=== PATIENT | male | born 1930 | race Caucasian/White ===

== ENCOUNTER 2017-10-17 22:31 | Inpatient (IN) | payer MEDICARE, OTHER ==
[~2017-10-17] VITALS: Ht 182.9 cm; Wt 68.0 kg
[~2017-10-17 22:31] MED LIST: ACETAMINOPHEN325 M1 OR; ACID CONTROL20 MG OR; ADVAIR 250-501 EACH; ADVAIR HFA 230M12 GM INH; ADVAIR HFA115 MCG/21 INH; ASPIR-TRIN325 MG PO; ASPIRIN325; ASPIRIN325 PO; AUGMENTIN 875-1 EACH; AUGMENTIN 875875 MG PO; CARDIZEM CD240 MG PO; CARDIZEM CD360 MG OR; CEFTIN500 MG PO; CLOTRIMAZOLE100 MG PO; FLECAINIDE ACET50 M2 PO; LEVOTHYROXIN0.025 MG PO; MAGOX 400400 MG PO; MUCINEX TA600 MG/TA1 PO; MUCUS RELIEF400 MG PO; NYSTATIN 1100000 U/M OR; PACERONE 200 M200 M1 PO; PREDNISONE 10 M10 M1 OR; PREDNISONE 10 M10 MG PO; PREDNISONE 20 M20 M1; PREDNISONE 20 M20 M1 PO; PREDNISONE50 MG PO; PROAIR HFA8.5 GM IH; PROPAFENONE 22225 MG PO; PROVENTIL INH; SORINE 80 MG TA80 M1 PO; SORINE 80 MG TA80 MG PO; SPIRIVA; SPIRIVA INH; THEO-24400 MG; THEO-24400 MG PO; THEOPHYLLINE S200 M1; ZPAK PO
[2017-10-17 22:33] VITALS: BP 117/65
[2017-10-17 23:00] LABS: BE 4.9 mmol/L (-2 to +3); PCO2 46.1 mmHg (35.0-45.0); pH 7.431 (7.340-7.450)
[2017-10-17 23:02] LABS: PO2 127.8 mmHg (75.0-100.0)
[2017-10-17 23:09] LABS: URINE BILIRUBIN NEGATIVE (Negative); URINE BLOOD 2+ (Negative); URINE CLARITY CLEAR; URINE COLOR YELLOW; URINE GLUCOSE-RANDOM NEGATIVE (Negative); URINE KETONES NEGATIVE (Negative); URINE LEUKOCYTES-REFLEX TRACE (Negative); URINE NITRITE-REFLEX NEGATIVE (Negative); URINE PROTEIN TRACE (Negative); URINE SPECIFIC GRAVITY 1.015 (1.005-1.030)
--- NOTE | 2017-10-17 23:13 | NUR ---
FAMILY AT BEDSIDE
[2017-10-17 23:14] LABS: ABSOLUTE BASOPHILS 0.1 thou/uL (0.0-0.2); ABSOLUTE EOSINOPHILS 0.1 thou/uL (0.0-0.7); ABSOLUTE MONOCYTES 0.8 thou/uL (0.0-1.2); ABSOLUTE NEUTROPHILS 8.1 thou/uL (1.6-8.1); BASOPHILS 0.6 %; EOSINOPHILS 0.5 %; HEMATOCRIT 37.4 % (42.0-52.0); MCHC 32.2 g/dL (28.0-37.0); MCV 80.9 fL (80.0-100.0); MONOCYTES 7.7 %; MPV 8.9 fl. (7.2-11.1); NUCLEATED RBCS 0 /100WBC; PLATELET COUNT* 220 thou/uL (150-400); POLYS 81.2 %; RBC 4.62 mil/uL (4.50-6.00); RDW-CV 16.3 % (10.5-14.5)
[2017-10-17 23:19] LABS: BACTERIA-REFLEX >30 Many /HPF (None Seen); FINE GRANULAR CASTS 0-3 Few /LPF (None Seen); HYALINE CASTS 0-3 Few /LPF (None Seen); MUCUS >6 Heavy strn/LPF (None Seen); RBC CASTS 0-3 /LPF; SQUAMOUS 0-3 Few /LPF (0-3); URINE RBC >20 Many /HPF (0-2); URINE WBC-REFLEX 6-15 Few /HPF (0-5)
[2017-10-17 23:20] LABS: CRYSTALS None Seen /LPF (None Seen)
[2017-10-17] MEDS ORDERED: DIGOXIN250 MCG PO (23:20)
[2017-10-17 23:25] LABS: ANION GAP 5 mmol/L (7-16); BUN 12 mg/dL (7-18); CALCIUM 8.8 mg/dL (8.5-10.1); CHLORIDE 100 mmol/L (98-107); CO2 33 mmol/L (21-32); CREATININE 0.8 mg/dL (0.6-1.3); GLUCOSE 125 mg/dL (70-99); SODIUM 138 mmol/L (136-145)
[2017-10-17] MEDS ORDERED: PRESERVISION L1 EACH PO (23:25)
[2017-10-17 23:32] LABS: ALBUMIN 2.4 g/dL (3.4-5.0); ALKALINE PHOSPHATASE 60 U/L (46-116); MAGNESIUM 1.8 mg/dL (1.8-2.4); SGOT 10 U/L (15-37); TOTAL BILIRUBIN 0.4 mg/dL (<0.1-1.0); TOTAL PROTEIN 6.3 g/dL (6.4-8.2); TROPONIN-I LEVEL <0.06 ng/mL (<0.06)
[2017-10-18] VITALS (9 sets, daily range): BP systolic 92–104; BP diastolic 50–59
--- NOTE | 2017-10-18 05:03 | NUR ---
PATIENT ARRIVED VIA CART FROM ED AROUND 0110. PT A/OX2, ONLY STATES "I'M COLD" WHEN SPOKEN TOO. PT DID DENY PAIN. TELE MONITOR TRACING AFIB/BBB AND SR. BP STABLE. IVF INFUSING ORDERED. PT PULLED IV OUT THIS AM AND WAS TUGGING AT BAKER- MITTS PLACED ON HANDS FOR SAFETY. BAKER TO D/D WITH EMERITA/RED URINE. ON 2L NC. INCONT BMX3 THIS SHIFT. REPOSITIONED Q2H. FALL PRECAUTIONS IN PLACE, BEDALARM IN PLACE, WILL CONTINUE WITH PLAN OF CARE.
--- NOTE | 2017-10-18 07:15 | NUR ---
CHANGE OF SHIFT, BEDSIDE REPORT GIVEN ASSUMED PATIENT CARE PATIENT SEEN AT BEDSIDE ASLEEP, BED ALARM SET
[2017-10-18 07:18] LABS: SGPT < 6 U/L (30-65)
--- NOTE | 2017-10-18 10:06 | EKG ---
[place] [address] ELECTROCARDIOGRAM REPORT Name: ROHITHJAKE V Room: [address] ADM IN M.R.#: [id number] Admission: 10/18/17 Attend Phys: Omaira Cai Discharge: Date of : [birth year] Report #: [id number] THIS REPORT FOR: //name// [facility] ED Test Date: 2017-10-17 Test Time: 22:50:26 Pat Name: JAKE NEWBERRY Department: Room: [facility] Gender: M Barrel Assembler: GONZALES : 1930 Requested By: Darcy Roy Order Number: [id number] MD: Bill Isaac Measurements Intervals [place] Rate: 81 P: 82 MI: 205 QRS: -35 QRSD: 127 T: 30 QT: 388 QTc: 451 Interpretive Statements Sinus rhythm low voltage Right bundle branch block Baseline wander in lead(s) I,III,aVL,aVF Compared to ECG 06/10/2015 21:42:39 No significant changes Electronically Signed On 10-18-2017 10:06:34 CONDENSER TESTER by Bill Isaac [email or web address] <ELECTRONICALLY SIGNED> By: Bill Isaac MD, [facility] 10/18/17 1006 2250 [id number] Bill Isaac MD, [facility] /EPI
--- NOTE | 2017-10-18 12:01 | NUR ---
WOUND CARE NOTE: CONSULT RECEIVED FOR SACRAL FISSURE. PATIENT PRESENTS WITH PARTIAL THICKNESS SKIN BREAKDOWN TO SACRAL/JAIMIE-ANAL AREA. BELIEVE DUE TO INCONTINENCE ASSOCIATED DERMATITIS. PATIENT DID HAVE INCONTINENT EPISODE, ASSSISTED HEALTH AND SAFETY SPECIALIST WITH CLEANSING AND NEW CHUX APPLIED. AREA MEASURES 9.5X0.5X0.1. APPLIED Z-GUARD BARRIER OINTMENT. EDUCATED PATIENT ON KEEPING OFF AREA, BUT WILL NEED REINFORCEMENT HE IS CONFUSED. PATIENT WAS PLACED ON THE LEFT SIDE USING PILLOWS. RECOMMEND TURN Q2 HOURS-KEEP OF WOUNDS ENCOURAGE GOOD NUTRITION AND HYDRATION HEELS OFFLOADED Z-GUARD BID AND PRN INCONTINENCE
--- NOTE | 2017-10-18 14:49 | NUR ---
CM left VM for Pt's dtr to assess living situation. Awaiting call back.
--- NOTE | 2017-10-18 18:49 | NUR ---
PATIENT REMAINS A AND O X [address], CONFUSED ABOUT SITUATION, TIME IRRITABLE AND NONCOPERATIVE AND CURSING MOST OF THE DAY SR LUNGS DIM O2 2L NC O2 SAT MID 90S POOR APPETITE, REFUSES ORAL INTAKE MULTIPLE LARGE LOOSE BMS TODAY BAKER TO DD YELLOW WITH SEDIMENT UO BR TURN Q 2HR SKIN DRY AND FRAGILE AND MULTIPLE BRUISES SACRAL CRACK WITH OPEN, RED AREA WOUND CONS SEEN AND BARRIER CREAM APPLIED AFTER CLEANSING AREA IV 20 GA R H IVF SLD CTA COMPLETED TODAY SPEECH EVAL COMPLETED TODAY CALL LIGHT IN REACH AND INSTRUCTION GIVEN BUT NOT ALWAYS FOLLOWED BED ALARM SET
[2017-10-19 03:52] VITALS: BP 100/49
--- NOTE | 2017-10-19 05:12 | NUR ---
ASSUMED CARE AROUND 1930. PT CONFUSED, ORIENTED TO SELF ONLY. PT MORE ALERT/AWAKE NIGHT WENT OUT, YELLING OUT. PT THINKS HE IS AT HOME AND ASKS FOR HIS DAUGHTER YENNIFER EVERY TIME STAFF ENTERS ROOM. PT REORIENTED FREQUENTLY. PT STATING HE HASN'T EATEN OR DRANK ANYTHING "IN 18 HOURS". PATIENT INSISTED ON DRINKING WATER WHILE LYING DOWN- NO CHOKING NOTED. OFFERED PT PUDDING AND APPLESAUCE THIS SHIFT MULTIPLE TIMES BUT HE WOULD COME UP WITH AN EXCUSE NOT TO EAT IT. TELE MONITOR TRACING SR/BBB AND AFIB. VSS, TMAX 100.2F ORAL. ON 3L NC. BAKER TO D/D. INCONT BM. REPOSITIONED DURING NIGHT. IV SALINE LOCKED. PT DENIED PAIN. CALL LIGHT IN REACH, BEDALARM ON, WILL CONTINUE WITH PLAN OF CARE.
--- NOTE | 2017-10-19 07:10 | NUR ---
CHANGE OF SHIFT, BEDSIDE REPORT GIVEN PATIENT SEEN AT BEDSIDE, RESTING IN BED BED ALARM SET ASSUMED PATIENT CARE
[2017-10-19 08:00] VITALS: BP 106/48
--- NOTE | 2017-10-19 14:39 | NUR ---
PT'S MEDICAL CHART REVIEWED AND STATUS DISCUSSED W/ NSG. PER NSG AND PT'S SON WHO WAS PRESENT IN ROOM, PT HAS BEEN BED BOUND X 1 YEAR. PT IS NON AMBULATORY AND ALL CARE RECEIVED AT BED LEVEL. DUE TO PT AT BASELINE LEVEL OF FUNCTIONING NO FURTHER ACUTE PT SERVICES ARE INDICATED.
--- NOTE | 2017-10-19 14:49 | NUR ---
CM SPOKE TO THE PATIENT'S DTR TO DISCUSS THE PATIENT'S HOME SITUATION, DISCHARGE PLANNING, AND TO INFORM OF THE ROLE OF CM. PATIENT RESIDES AT HOME AND DTR LIVES WITH HIM. PATIENT'S DTR DOES ALL COOKING AND CLEANING IN THE HOME. PRIOR TO ADMISSION PATIENT UNABLE TO BATHE AND DRESS HIMSELF INDEPENDENTLY. PATIENT HAS A C.N.A THAT ASSIST HIM AT HOME FROM 11AM-2PM SATURDAY THRU SATURDAY. PATIENT USES A WHEELCHAIR FOR MOBILITY AND OCCATIONALLY USES A WALKER. PATIENT HAS NO HX OF SNF, AND PLANS TO HAVE THE PATIENT RETURN HOME AT D/C. CM WILL REMAIN AVAILABLE TO ASSIST AND FOLLOW NEEDED.
--- NOTE | 2017-10-19 18:30 | NUR ---
PATIENT REMAINS A AND O X 1-[address], CONFUSED AND IMPULSIVE IRRITABLE AND NONCOOPERATIVE MOST TIMES AFIB/SR IN AND OUT OF AFIB LUNGS DIM/COARSE/WHEEZES O2 3L NC O2 SATS MID 90S POOR APPETITE DIET AMMENDED SOFT/PUREED DUE TO POOR DENTATION ENCOURAGE AND ASSIST FEED LAST BM TODAY X 2 BAKER TO DD BLD TINGED URINE BR TURN Q 2HR RECTAL JAIMIE ANAL WOUND REDDNESS ALONG CRACK CLEANSED AND ZINC BARRIER APPLIED PRN IV 22 GA R WR SL NO C/O PAIN CALL LIGHT IN REACH AND INSTRUCTION GIVEN AND FOLLOWED AT TIMES BED ALARM SET NEW ORDERS TODAY CONS FOR PULM AND HOSPICE
[2017-10-19 19:47] VITALS: BP 98/45
[2017-10-20] VITALS (7 sets, daily range): BP systolic 82–102; BP diastolic 40–57
[2017-10-20 05:12] LABS: HEMATOCRIT 29.8 % (42.0-52.0); MCH 25.9 pg (26.0-34.0); MCHC 32.2 g/dL (28.0-37.0); MCV 80.6 fL (80.0-100.0); MPV 8.6 fl. (7.2-11.1); RBC 3.69 mil/uL (4.50-6.00); RDW-CV 16.2 % (10.5-14.5)
[2017-10-20 05:17] LABS: HEMOGLOBIN 9.6 gm/dL (14.0-18.0)
[2017-10-20 06:15] LABS: ALBUMIN 1.8 g/dL (3.4-5.0); ALKALINE PHOSPHATASE 47 U/L (46-116); ANION GAP 10 mmol/L (7-16); BUN 11 mg/dL (7-18); CALCIUM 7.6 mg/dL (8.5-10.1); CHLORIDE 108 mmol/L (98-107); CO2 26 mmol/L (21-32); CREATININE 0.8 mg/dL (0.6-1.3); GLUCOSE 96 mg/dL (70-99); MAGNESIUM 1.6 mg/dL (1.8-2.4); POTASSIUM 3.3 mmol/L (3.5-5.1); SGOT 11 U/L (15-37); SGPT < 6 U/L (30-65); SODIUM 144 mmol/L (136-145); TOTAL BILIRUBIN 0.3 mg/dL (<0.1-1.0); TOTAL PROTEIN 4.6 g/dL (6.4-8.2)
--- NOTE | 2017-10-20 06:53 | NUR ---
ASSUMED CARE AROUND 1930. PT CONFUSED, ORIENTED TO SELF, MORE PLEASANT TONIGHT AND RESTED MORE TONIGHT. PT DID EAT TWO PUDDINGS. TELE MONITOR TRACING AFIB/BBB AND SR. VSS, AFEBRILE. ON 3L NC-LEAVING IT ON THIS SHIFT BUT TALKING ABOUT HOW THE CORD IS SPLIT AND HE NEEDED IT FIXED. PT FREQUENTLY REORIENTED. SPOKE TO DAUGHTER YENNIFER LAST NIGHT FOR AN UPDATE. IV SALINE LOCKED. BAKER TO D/D WITH DARK YELLOW URINE. REPOSITIONED DURING THE NIGHT. DENIED ANY PAIN. SEE CHARTING. CALL LIGHT IN REACH, WILL CONTINUE WITH PLAN OF CARE.
--- NOTE | 2017-10-20 07:15 | NUR ---
CHANGE OF SHIFT, BEDSIDE REPORT GIVEN PATIENT SEEN AT BEDSIDE, ASLEEP BED ALARM ON ASSUMED PATIENT CARE
[2017-10-20 12:47] LABS: CALCIUM 7.9 mg/dL (8.5-10.1); CREATININE 0.8 mg/dL (0.6-1.3); MAGNESIUM 1.5 mg/dL (1.8-2.4); POTASSIUM 3.1 mmol/L (3.5-5.1)
--- NOTE | 2017-10-20 19:12 | NUR ---
PATIENT A AND O 1-2, CONUSED LESS OFTEN TODAY AFIB/SR LUNGS COARSE/DIM O2 3L NC O2 SAT MID 90S POOR APPETITE ALTERED DIET SOFT/PUREED DUE TO DENTATION LAST BM TODAY BAKER TO DD DYELLOW URINE OUTPUT BR TURN Q 2HR REF SCDS NO C/O PAIN WOUND SACRAL TO ANUS ZINC BARRIER CREAM APPLIED AFTER CLEANSING WHEN SOILED IV R FA 20 GA SL CALL LIGHT IN REACH AND INSTRUCTION GIVEN AND FOLLOWED AT TIMES BED ALARM SET ABN LABS K+ 3.3 AND MAG 1.6 REPLACED PER [facility] [employer] AND TO CHECK ON PM CONS PULM AND HOSPICE SHIFT
--- NOTE | 2017-10-21 03:15 | NUR ---
ASSUMED CARE OF PT AT 1900. PT IS CONFUSED. VSS. CONNOR. NO COMPLAINTS OF PAIN. PT HAS A BAKER IN PLACE. PT IS IN SINUS RYTHM ON THE TELEMETRY. PT IS RESTING COMFORTABLY IN BED. RESPIRATIONS ARE EVEN AND NONLABORED. WILL CONTINUE TO MONITOR PT.
[2017-10-21 04:00] VITALS: BP 96/45
[2017-10-21 08:00] VITALS: BP 102/50
[2017-10-21 08:05] LABS: MAGNESIUM 1.9 mg/dL (1.8-2.4); POTASSIUM 4.3 mmol/L (3.5-5.1)
--- NOTE | 2017-10-21 09:44 | NUR ---
ASSUMED CARE OF PT THIS AM AROUND 0715- MATERIAL INSPECTOR IN PLACE ORDERED, TRACING SR- UPON ASSESSMENT PT NOTED TO BE RESTING IN BED, EYES CLOSED- A&O X3-4 WITH FORGETFULLNESS, NOTED TO BE FUSSY AND MODDY AT TIMES- CONTINENT OF BOWEL, BAKER IN PLACE D/D CLEAR EMERITA URINE- BED REST WITH QN [address], BARRIOR CREAM TO COCCYX INDICATED- LCTA IN BASES, DIMINISHED IN UPPER LOBES- RESP EVEN AND UN-LABORED- VSS, O 2 SAT 93% ON 3L VIA NC- ABDOMEN SOFT/ROUND/NON-TENDER, BS X 4- LAST BM REPORTED 10/20/17- IV NOTED TO RIGHT FA INTACT, IV ABT GIVEN THIS AM PRESCIBED THIS AM- POOR PO INTAKE NOTED THIS AM WITH BREAKFAST- PT DENIES ANY C/O PAIN/DISCOMFORT AT THIS TIME- CALL LIGHT AND PERSOANL BELONGINGS WITH IN REACH- HOURLY ROUNDS IN PLACE R/T SAFETY/NEEDS- ALL NEEDS MET AT THIS TIME-WCTM
--- NOTE | 2017-10-21 10:58 | NUR ---
Following through dc. Spoke with Pt's dtr via phone regarding hospice consult. Dtr in agreement with speaking with hospice. Dtr is at jury duty today, so unable to speak with hospice. Dtr stated that Pt is current with [facility] in home care, so would like to use [facility]. CM to contact dtr in the morning to arrange meeting with hospice, assuming she does not get called for jury duty. Following.
[2017-10-21 11:51] VITALS: BP 93/50
--- NOTE | 2017-10-21 11:54 | CON ---
[address] [address] CONSULTATION Name: JAKE NEWBERRY V Room: [address] IN M.R.#: [id number] Admission: 10/18/17 Attend Phys: Omaira Cai Discharge: Date of : [birth year] Report #: [id number] THIS REPORT FOR: //name// CC: Joanne Dominique REQUESTING PHYSICIAN: Ashwin Velasquez MD REASON FOR CONSULTATION: Lung mass. DISCUSSION: The patient is an 87-year-old man who has a history of underlying obstructive lung disease. He is a former smoker, quitting back in the . He was admitted here with decreased level of consciousness. Chest x-ray revealed an extensive pneumonia and infiltrate in his right lower lobe. Appears in the past on other imaging studies, there had been a question about a mass lesion in the right lower lobe. On the CT scan, it did appear that he had a large mass. Also, a postobstructive pneumonia. He has been on antibiotics. Other physicians' notes indicate that they were going to discuss these findings with the family. They also were considering hospice care. He has a history of underlying dementia. Not a very good historian. However, he is fairly lucid at the time I saw him today and does seem to recall events from some time ago. Former smoker, quitting in the . He has been a longtime patient of Dr. Foreign Smith. However, it is not clear what inhalers, breathing treatments he may be doing at home at this time. He also has a history of obstructive sleep apnea, has been on CPAP, though I do not think he is on that at this time. He essentially is not mobile at all. He does not really get out. He does live with one of his children. He denies ever being aware of any type of a nodule or spot in his lung. He denies having any hemoptysis to me, he also denies having any chest pain. PAST MEDICAL HISTORY: Also remarkable for atrial fibrillation. He is not on anticoagulation therapy given his other issues. He also had skin cancers removed, parotitis, issues with orthostatic hypotension, dysphagia in the past. SOCIAL HISTORY: Remote smoker as noted. Lives with family members. 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 Also, was a [employer], served in the [employer]. FAMILY HISTORY: Not pertinent in [place] [address] CONSULTATION Name: JAKE NEWBERRY Shayla Room: [address] IN [facility]#: [id number] Admission: 10/18/17 Attend Phys: Omaira Cai Discharge: Date of : [birth year] Report #: [id number] REVIEW OF SYSTEMS: Question the reliability. He currently denies any difficulty swallowing, though he does admit it has been an intermittent problem for him. Poor appetite. Denies any recent vomiting. However, he has lost weight. It is difficult to ascertain how much. Essentially he is not mobile. He is not aware of any issues with swelling in his lower extremities. PHYSICAL EXAMINATION: GENERAL APPEARANCE: An elderly man. He is somewhat hard of hearing. He is alert, fairly cooperative. He has O2 running via nasal cannula. He had no cough or any sputum expectorated during my visit. HEENT: Head was normocephalic. Sclerae nonicteric. Mucous membranes look a little dry. NECK: Negative for any cervical adenopathy. Trachea appears midline. Neck veins are somewhat prominent. Neck muscles are well developed. HEART: Irregularly irregular. Grade 1-2/6 systolic murmur. No S3 is heard. LUNGS: Reveal breath sounds to be diminished with a prolonged expiratory phase. A few late expiratory wheezes. Excursion is equal. ABDOMEN: Soft, without appreciable hepatosplenomegaly. No guarding or rebound tenderness. EXTREMITIES: He does have some muscle wasting. No edema is noted. SKIN: Warm and dry. LABORATORY AND X-RAY FINDINGS: Chest x-ray revealed fairly extensive right lower lobe infiltrate, may have a small right pleural effusion. Much of this area is quite dense, appears almost mass-like. On the CT scan done of his chest, no pulmonary emboli were seen. However, he does have a very large mass in the right lower lobe. Radiologist measurements are 9.7 x 7.2 x 10.4 cm. He has changes which are also consistent with a postobstructive pneumonia. Multiple gallstones were noted as well. Cultures this admission are negative. On his chemistry, BUN is 11, creatinine 0.8, potassium is 3.1. Albumin is 1.8. White blood cell count 6000, hemoglobin 9.6, hematocrit 29.8. Blood gases done several days ago on 4 liters nasal cannula, he had a pH of 7.43, pCO2 of 46, pO2 of 128, bicarbonate at 30 with a saturation 98%. IMPRESSION: 1. Large mass, right lower lobe. It was noted on imaging studies back in 2014, has definitely increased in size. 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 2. Postobstructive pneumonia. 3. Dementia. 4. Atrial fibrillation. RECOMMENDATIONS: Discussed findings with the patient. He seems to grasp what I am saying, though I am not sure how well he will retain these. After I had seen the patient, his daughter who he lives with did arrive. I explained the CT findings to her. [address] [place] [address] CONSULTATION Name: JAKE NEWBERRY V Room: [address] IN M.R.#: [id number] Admission: 10/18/17 Attend Phys: Omaira Cai Discharge: Date of : [birth year] Report #: [id number] I understand Hospice will be meeting with the family. I agree with that. Given his age, other medical problems and progressive dementia, I do not think attempting to do a biopsy (with its own inherent risks such as a pneumothorax) would offer him any benefit. He would certainly be a poor candidate for any type of therapy. I agree with the hospice. I shared my opinion also with his daughter. <ELECTRONICALLY SIGNED> By: Nai Garcia MD 10/21/17 1154 [id number] Tate MD /nt
[2017-10-21 16:00] VITALS: BP 114/60
--- NOTE | 2017-10-21 16:36 | NUR ---
PT SUMIENLTY RESTING IN BED, SON AT SIDE VISITING- BREWING DIRECTOR IN PLACE ORDERED, TRACING SR- IV TO RIGHT FA INTACT, SL- PT NOTED TO HAVE INCONTINENT BM X2 THIS SHIFT- POOR PO INTAKE NOTED, BOOST GIVEN SUPPLEMENT- Q [address] AND CONTINUED INDICATED, BARRIOR CREAM PRN TO COCCYX- - HOSPICE DISSCUSED DOUGLAS PHYSICIAN AND PT DAUGHTER THIS SHIFT WITH PLANS FOR D/C 10/22/16 TO SKILLED WI OT HOSPICE CONSULT, PT IS UNABLE TO MAKE DECISION AT THIS TIME- DENIES ANY C/O PAIN/DISCOMFORT AT THIS TIME- CALL LIGHT AND PERSOANL BELONGINGS WITH IN REACH- BED ALARM IN PLACE AND WORKING FOR PT SAFETY- ALL NEEDS MET AT THIS TIME-WCTM
[2017-10-21 20:00] VITALS: BP 113/51
[2017-10-22] VITALS: BP 95/48
--- NOTE | 2017-10-22 01:10 | NUR ---
PT ALERT ORIENTED TO SELF AND PLACE. PT TURNS Q 2 HRS. TELEMETRY SHOWS ACCELERATED JUNCTIONAL THAT CHGD TO SR BBB. O2 AT 3 LITERS NC. BAKER TO DD. PT INCONTINENT OF STOOL. PT HAS CALL LIGHT AND USES TO ASK NURSE QUESTIONS. WILL CONTINUE TO MONITOR.
[2017-10-22 05:00] VITALS: BP 111/51
[2017-10-22 07:51] VITALS: BP 97/50
--- NOTE | 2017-10-22 08:50 | NUR ---
ASSUMED CARE OF PT THIS AM AROUND 07- DIRECTOR OF RADIO SERVICES IN PLACE ORDERED, TRACING JUCTIONAL/SR- UPON ASSESSMENT PT NOTED TO BE RESTING IN BED, EYES CLOSED- PT A&O X2 WITH INTERMITENT CONFUSION NOTED- INCONTINENT OF BOWEL, BAKER IN PLACE D/D CLEAR EMERITA URINE- BED REST IN PLACE WITH Q 2 HOUR TURNS- DIMINISHED UPPER LUNG SOUNDS, CLEAR TO BASES- VSS, O2 SAT 97% ON 3L VIA NC- ABDOMEN SOFT/FLAT/NON-TEDNER, BS X 4 QUADS- SEVERAL BM'S REPORTED ON PRIOR SHIFT- +1 BLE EDEMA NOTED- POR PO INTAKE NOTED- IV NOTED TO RIGHT FA INTACT AND SL, IV ABT GIVEN THIS AM PRESCIBED-PT DENIES ANY C/O PAIN/DISCOMORT AT THIS TIME- CALL LIGHT AND PERSONAL BELONGINGS WITH IN REACH- BED ALARM IN PLACE AND WORKING FOR PT SAFETY- HOURLY ROUNDS IN PLACE R/T SAFETY/NEEDS- ALL NEEDS MET AT THIS TIME-WCTM
--- NOTE | 2017-10-22 10:58 | NUR ---
Pt discharging to [facility] skilled today. Faxed dc orders. Chart copied. Nurse report number provided, . Updated Pt's dtr, in room at bedside. Facility to pick up man at 3pm.
[2017-10-22] MEDS ORDERED: TYLENOL325 MG PO (11:15)
[2017-10-22] MEDS ORDERED: DUONEB 2.5-0.5 M3 ML INH ×2 (11:16→11:17)
[2017-10-22] MEDS ORDERED: ADVAIR HFA 230M12 GM INH (11:16)
[2017-10-22] MEDS ORDERED: LEVAQUIN 750 M750 MG PO (11:19)
[2017-10-22 11:20] VITALS: BP 89/42
[2017-10-22 11:21] VITALS: BP 89/42
--- NOTE | 2017-10-22 15:06 | NUR ---
ORDERDS RECIVED THIS SHIFT FOR [facility] TO D/C TO SKILLED PER WITH OP HOSPICE CONSULT- CM HERE TO ARRANGE FOR D/C TO [facility], VIA W/C VAN- IV TO RIGHT FA D/C'D ALONG WITH IMPORT/EXPORT SPECIALIST PRIOR TO D/C- D/C TEACHING/EDUCATION GIVEN PRIOR TO D/C- REPORT CALLED TO JAKUB RN AT [facility] AT 1505, ALL QUESTIONS AND CONCERNS ADDRESSED- BELONGINGS PACKED AND ACCOUNTED FOR PER TECH- PICTURE OBATINED OF COCCYX AND PLACED ON CHART FOR VIEWING-BAKER REMOVED PRIOR TO D/C AROUND 1430, REPORT GIVEN TO BEATRIZ CALL TO MONITOR FOR OUTPUT AT [facility]- W/C VAN HERE TO PICK PT UP @ 1500- PT ESCORTED PER TRANSPORTER WITH BELONGINGS VIA W/C, NOTED D/C TIME OF 1510 VIA W/C VAN- NO PROBLEMS TO NOTE AT TIME OF D/C
== END 2017-10-22 15:05 | DRG 177 ==
LOC: M.ERS 22:31 → M.TBA-ER 10-18 00:05 → M.2W 10-18 00:05
PROVIDERS: Family Medicine; Internal Medicine; Personal Emergency Response Attendant; ADMIT Internal Medicine
DX: J69.0 Pneumonitis due to inhalation of food and vomit (principal); J96.01 Acute respiratory failure with hypoxia; N39.0 Urinary tract infection, site not specified; J44.9 Chronic obstructive pulmonary disease, unspecified; E78.5 Hyperlipidemia, unspecified; I48.0 Paroxysmal atrial fibrillation; J15.6 Pneumonia due to other Gram-negative bacteria; F03.90 Unspecified dementia, unspecified severity, without behavioral disturbance, psychotic disturbance, mood disturbance, and anxiety; R91.8 Other nonspecific abnormal finding of lung field; R62.7 Adult failure to thrive; G47.33 Obstructive sleep apnea (adult) (pediatric); E87.6 Hypokalemia; E83.42 Hypomagnesemia; Z98.49 Cataract extraction status, unspecified eye; Z88.1 Allergy status to other antibiotic agents; Z88.8 Allergy status to other drugs, medicaments and biological substances; Z87.891 Personal history of nicotine dependence; Z82.49 Family history of ischemic heart disease and other diseases of the circulatory system